=== PATIENT | female | born 1980 | race Caucasian/White ===

== ENCOUNTER 2023-08-28 15:19 | Emergency (ER) | payer OTHER ==
[~2023-08-28] VITALS: Ht 165.1 cm; Wt 84.1 kg
[~2023-08-28 15:19] MED LIST: CARB200T6 PO; CLON1TAB12 PO; PROP40TA7 PO; QUET100T PO
[2023-08-28 15:35] LABS: COVID AG,FIA SOURCE NASAL SWAB
[2023-08-28 16:18] LABS: SARS-COV2 (COVID) ANTIGEN,FIA Negative (Negative)
[2023-08-28 16:21] LABS: INFLUENZA TYPE A NEGATIVE FOR TYPE A (NEGATIVE); INFLUENZA TYPE B NEGATIVE FOR TYPE B (NEGATIVE)
[2023-08-28 18:17] VITALS: BP 136/84; PULSE 84; RESP 18; TEMP 98.2
== END 2023-08-28 18:47 | disposition home or self-care (01) ==
LOC: EMS 15:19
DX: J06.9 Acute upper respiratory infection, unspecified (principal); F20.9 Schizophrenia, unspecified; Z20.822 Contact with and (suspected) exposure to COVID-19
CPT/HCPCS: 99283; 87426; 87804; C9803